=== PATIENT | male | born 1965 ===

== ENCOUNTER 2017-03-21 11:02 | Emergency (ER) | payer BC ==
[2017-03-21 11:35] VITALS: TEMP 99.2
[2017-03-21 12:21] VITALS: RESP 18; O2SAT 96
[2017-03-21] MEDS ORDERED: Piperacill/Tazo 4.5gm in NS 4.5 GM/100 ML BAG IVPB STA (12:49)
--- NOTE | 2017-03-21 12:58 | ED PDOC ---
Arrival/HPI - General Chief Complaint: Lower Extremity Problem/Injury Time Seen by Provider: 03/21/17 11:10 Historian: Patient, Spouse - History of Present Illness Narrative History of Present Illness (Text): 03/21/17 12:55 you were treated in the ED today for diabetes and not compliant with medications for sometime and have had left lower ankle/foot swelling/redness/ scabbing with longstanding numbness/decreased sensation in the feet but otherwise without any trauma/fall/injury/nausea/vomiting/headache/dizziness/ difficulty breathing/chest pain/abdomen pain/tingling/loss of limb function/ pain with urination. PMD: Dr. Brandon Price 03/21/17 14:03 03/21/17 14:04 Past Medical History - Provider Review Nursing Documentation Reviewed: Yes - Travel History Have you recently traveled outside [place] w/in the past 3 mons?: No - Infectious Disease Hx of Infectious Diseases: None - Endocrine/Metabolic Hx Diabetes Mellitus Type 2: Yes - Psychiatric Hx Substance Use: No - Anesthesia Hx Anesthesia: No Family/Social History Family/Social History: No Known Family HX Smoking Status: Current Some Days Smoker Hx Alcohol Use: No Hx Substance Use: No Allergies/Home Meds Allergies/Adverse Reactions: Allergies No Known Allergies Allergy (Verified 03/21/17 11:35) Review of Systems - Review of Systems Constitutional: Normal Eyes: Normal ENT: Normal Respiratory: Normal Cardiovascular: Normal Gastrointestinal: Normal Genitourinary Male: Normal Musculoskeletal: Joint Swelling Skin: Cellulitis Neurological: Normal Endocrine: Normal Hemo/Lymphatic: Normal Psychiatric: Normal Physical Exam Vital Signs Reviewed: Yes Vital Signs Temp Pulse Resp BP Pulse Ox 03/21/17 15:32 67 18 121/65 96 03/21/17 13:45 69 18 123/69 96 03/21/17 12:20 75 18 125/71 96 03/21/17 11:32 99.2 F 88 16 126/75 98 Temperature: Afebrile Blood Pressure: Hypertensive Pulse: Regular Respiratory Rate: Normal Appearance: Positive for: Well-Appearing, Non-Toxic, Comfortable Pain Distress: None Mental Status: Positive for: Alert and Oriented X 3 - Systems Exam Head: Present: Atraumatic, Normocephalic Pupils: Present: PERRL Extroacular Muscles: Present: EOMI Conjunctiva: Present: Normal Mouth: Present: Moist Mucous Membranes Pharnyx: Present: Normal Nose (External): Present: Atraumatic Nose (Internal): Present: Normal Inspection Neck: Present: Normal Range of Motion Respiratory/Chest: Present: Clear to Auscultation, Good Air Exchange Cardiovascular: Present: Regular Rate and Rhythm Abdomen: No: Tenderness, Distention, Normal Bowel Sounds, Peritoneal Signs, Rebound, Guarding, McBurney's Point Tender, Rovsing's Sign Present, Hernias, Feeding Tubes, Ostomy Tubes, Mass/Organomegaly, Scars, Other Back: Present: Normal Inspection Upper Extremity: Present: Normal Inspection Lower Extremity: Present: Tenderness, Swelling, Other (LLE lateral ankle with erythema/swelling/necrotic scabbing at ankle joint without thrill in jt, but mild discomfort wo fluctuance/crepitus. and lle posterior foot with area of boggy necrotic scabbing wo fluctuance/crepitus.) Neurological: Present: GCS=15, CN II-XII Intact, Speech Normal, Motor Func Grossly Intact Skin: Present: Warm, Dry, Other (see msk le) Psychiatric: Present: Alert, Oriented x 3, Normal Insight, Normal Concentration Medical Decision Making ED Course and Treatment: you were treated in the ED today for diabetes and not compliant with medications for sometime and have had left lower ankle/foot swelling/redness/ scabbing with longstanding numbness/decreased sensation in the feet but otherwise without any trauma/fall/injury/nausea/vomiting/headache/dizziness/ difficulty breathing/chest pain/abdomen pain/tingling/loss of limb function/ pain with urination. You were otherwise breathing easily, smiling with your spouse, good strength/sensation, clear lungs, no abdomen tenderness, LLE lateral ankle with redness/necrotic scabbing at joint, and left back foot with necrotic scabbing with good warm/sensation on touch/cap refill/pink and no other bony discomfort, no fever temp 99.2, stable heart rate 88, stable breathing rate 16, excellent oxygen level 98% room air, elevated blood pressure 126/75 which we recommend repeat in 2-3 days primary care office to determine further treatment, you have blood tests mild infection count 15.3, stable blood level hemoglobin 13/platelets 362, stable chemistry sodium 134, potassium 4, bicarbonate 26, chloride 102, bun 14, creatinine 0.7, elevated glucose 282, anion gap 11, liver AST/ALT 17/28, Liver Alklaline Phosphatase 86, Liver bilirubin 0.3, heart blood test normal less than 0.01, stable lactic acid 1.8, esr mildly elevated 54, radiology left foot/ankle 5th metarsal base subacute fracture without sign of osteomylitis, ECG normal sinus rhythm, antibiotics zosyn done in the ED with improvement, counselled to be compliant with medications, wear special left shoe and use can till first clinic visit and thus discharged home with with left foot/ankle skin infection. 1. Recommend bactrim as directed for infection control. 2. Recommend metformin as directed for blood sugar control as your not on medications at this time. recommend check your blood sugar regularly. 3. Recommend follow-up primary care 1-2 days to review symptom, review diabetes medications, wound check, referral to podiatry clinic. 4. If any worsening pain, fever, chills, nausea, vomiting, difficulty breathing, numbness, loss of limb function, pain with urination or any medical condition then return to the ED. 03/21/17 13:00 03/21/17 13:58 left ankle xray - subacute left 5th metatarsal fracture. no signs of osteomylitis. 03/21/17 14:01 left foot xray subacute appearing 5th metatarsal fracture base with cystic changes. no further placement or angulation. no periosteal reaction typical of osteomylitis. no gas formation. 03/21/17 15:35 03/21/17 16:14 03/21/17 16:16 03/21/17 16:21 - Lab Interpretations Lab Results: 03/21/17 13:20 03/21/17 13:20 Lab Results 03/21/17 13:20: Troponin I < 0.01 03/21/17 13:20: Sodium 134, Chloride 102, Potassium 4.0, Carbon Dioxide 26, Anion Gap 11, BUN 14, Creatinine 0.7 L, Est GFR ( Amer) > 60, Est GFR ( Non-Af Amer) > 60, Random Glucose 282 H, Calcium 9.0, Total Bilirubin 0.3, AST 17, ALT 28, Alkaline Phosphatase 86, Total Protein 7.0, Albumin 3.5, Globulin 3.6, Albumin/Globulin Ratio 1.0 L 03/21/17 13:20: pO2 62 H, VBG pH 7.37, VBG pCO2 47.0, VBG HCO3 27.2, VBG Total CO2 28.6 H, VBG O2 Sat (Calc) 94.3 H, VBG Base Excess 1.3, VBG Potassium 4.1, Sodium 134.0, Chloride 102.0, Glucose 306 H, Lactate 1.8, FiO2 21.0, Venous Blood Potassium 4.1 03/21/17 13:20: PT 12.0, INR 1.10 H, APTT 32.6 03/21/17 13:20: WBC 15.3 H, RBC 4.67, Hgb 13.2 L, Hct 39.1 L, MCV 83.7, MCH 28.3 , MCHC 33.8, RDW 12.2, Plt Count 362, MPV 9.3, Gran % 70.9 H, Lymph % (Auto) 19.2 L, [place] % (Auto) 8.5 H, Eos % (Auto) 1.0 L, Baso % (Auto) 0.4, Gran # 10.82 H, Lymph # 2.9, [place]bot # 1.3 H, Eos # 0.2, Baso # 0.06, ESR 54 H I have reviewed the lab results: Yes - RAD Interpretation Radiology Orders: 03/21/17 12:51 ANKLE LEFT 3 VIEWS ROUTINE [RAD] Stat 03/21/17 12:52 FOOT LEFT 3 VIEWS ROUTINE [RAD] Stat Hourly Manager: Radiologist - EKG Interpretation Interpreted by ED Physician: Yes (NSR, flipped t waves i, avr, avl, v5, v6, flattened ii, ) Type: 12 lead EKG - Medication Orders Current Medication Orders: Discontinued Medications Piperacillin Sod/Tazobactam Sod (Zosyn 4.5 Gm In Ns 100ml) 4.5 gm in 100 mls @ 200 mls/hr IVPB STAT STA PRN Reason: Protocol Stop: 03/21/17 13:18 Last Admin: 03/21/17 13:41 Dose: 200 mls/hr eMAR Start Stop Document 03/21/17 13:41 ANKUSH (Rec: 03/21/17 13:47 ANKUSH [id number]) Intravenous Solution Start Date 03/21/17 Start Time 13:41 End Date 03/21/17 End time 14:11 Total Infusion Time 30 Disposition/Present on Arrival - Present on Arrival Any Indicators Present on Arrival: No History of DVT/PE: No History of Uncontrolled Diabetes: No Urinary Catheter: No History of Decub. Ulcer: No History Surgical Site Infection Following: None - Disposition Have Diagnosis and Disposition been Completed?: Yes Diagnosis: Cellulitis, Hyperglycemia Disposition: HOME/ ROUTINE Disposition Time: 16:21 Patient Plan: Discharge Patient Problems: Current Active Problems Problem Status Onset Cellulitis Acute Hyperglycemia Acute Condition: IMPROVED Discharge Instructions (ExitCare): Cellulitis (ED) Additional Instructions: you were treated in the ED today for diabetes and not compliant with medications for sometime and have had left lower ankle/foot swelling/redness/ scabbing with longstanding numbness/decreased sensation in the feet but otherwise without any trauma/fall/injury/nausea/vomiting/headache/dizziness/ difficulty breathing/chest pain/abdomen pain/tingling/loss of limb function/ pain with urination. You were otherwise breathing easily, smiling with your spouse, good strength/sensation, clear lungs, no abdomen tenderness, LLE lateral ankle with redness/necrotic scabbing at joint, and left back foot with necrotic scabbing with good warm/sensation on touch/cap refill/pink and no other bony discomfort, no fever temp 99.2, stable heart rate 88, stable breathing rate 16, excellent oxygen level 98% room air, elevated blood pressure 126/75 which we recommend repeat in 2-3 days primary care office to determine further treatment, you have blood tests mild infection count 15.3, stable blood level hemoglobin 13/platelets 362, stable chemistry sodium 134, potassium 4, bicarbonate 26, chloride 102, bun 14, creatinine 0.7, elevated glucose 282, anion gap 11, liver AST/ALT 17/28, Liver Alklaline Phosphatase 86, Liver bilirubin 0.3, heart blood test normal less than 0.01, stable lactic acid 1.8, esr mildly elevated 54, radiology left foot/ankle 5th metarsal base subacute fracture without sign of osteomylitis, ECG normal sinus rhythm, antibiotics zosyn done in the ED with improvement, counselled to be compliant with medications, wear special left shoe and use can till first clinic visit and thus discharged home with with left foot/ankle skin infection. 1. Recommend bactrim as directed for infection control. 2. Recommend metformin as directed for blood sugar control as your not on medications at this time. recommend check your blood sugar regularly. 3. Recommend follow-up primary care 1-2 days to review symptom, review diabetes medications, wound check, referral to podiatry clinic. 4. If any worsening pain, fever, chills, nausea, vomiting, difficulty breathing, numbness, loss of limb function, pain with urination or any medical condition then return to the ED. Prescriptions: MetFORMIN [glucoPHAGE] 500 mg PO Q12 10 Days #20 tab Sulfamethoxazole/Trimethoprim [Bactrim Ds Tablet] 1 each PO Q12 10 Days #20 tablet Referrals: Brandon Price III, MD [Primary Care Provider] - Follow up with primary Forms: [employer] (Uzbek)
--- NOTE | 2017-03-21 13:30 | RAD ---
PROCEDURE: Left Foot Radiographs. HISTORY: 52yoM, DM, w LLE necrotic scab. eval osteomylitis COMPARISON: None. FINDINGS: BONES: A subacute appearing 5th metatarsal base fracture with surrounding cystic changes suggested. Fractured ends at least 1 mm cystic changes surrounding fracture site noted. No further DIS placement or angulation deformity noted. No intra-articular extension. The site of the "Necrotic scab" is not specified or appreciated. No periosteal reaction typical of osteomyelitis noted. Correlation with the scab site suggested there is some equivocal soft tissue changes near the lateral hindfoot heel-far removed from the 5th metatarsal base. JOINTS: First metatarsal-phalangeal joint minimal arthrosis SOFT TISSUES: No gas-forming cellulitis. Possible superficial all ulcer lateral hindfoot heel level OTHER FINDINGS: Dense nail-great toe IMPRESSION: Subacute appearing fracture 5th metatarsal base. No periosteal reaction at typical of osteomyelitis appreciated. Necrotic scab site unclear. Superficial possible skin ulceration lateral hindfoot calcaneal level
--- NOTE | 2017-03-21 13:36 | RAD ---
PROCEDURE: Left Ankle Radiographs. HISTORY: 52yoM, DM, w LLE necrotic scab. eval osteomylitis COMPARISON: None FINDINGS: BONES: Subacute appearing fracture proximal 5th metatarsal base. No periosteal reaction typical of osteomyelitis seen JOINTS: First metatarsal-phalangeal joint osteoarthritis. Ankle mortise maintained. Talar dome intact SOFT TISSUES: Possible lateral hindfoot cellulitis -a superficial skin ulceration correlate clinically OTHER FINDINGS: None. IMPRESSION: No periosteal reaction typical of osteomyelitis seen. Lateral hindfoot soft tissue changes - correlate clinically with skin ulceration site Subacute appearing fracture 5th metatarsal base. Surrounding the fracture cystic changes noted.
[2017-03-21 13:56] LABS: BASO # 0.06 K/mm3 (0.0-2.0); BASO % 0.4 % (0.0-3.0); EOS # 0.2 (0.0-0.7); GRAN # 10.82 (1.4-6.5); GRAN % 70.9 % (50.0-68.0); HEMATOCRIT 39.1 % (42.0-52.0); LYMPH # 2.9 (1.2-3.4); LYMPH % 19.2 % (22.0-35.0); MEAN CELL VOLUME 83.7 fl (80.0-105.0); MEAN CORPUSCULAR HEMOGLOBIN 28.3 pg (25.0-35.0); MEAN CORPUSCULAR HGB CONC 33.8 g/dl (31.0-37.0); MEAN PLATELET VOLUME 9.3 fl (7.0-11.0); MONO # 1.3 (0.1-0.6); MONO % 8.5 % (1.0-6.0); RED CELL DISTRIBUTION WIDTH 12.2 % (11.5-14.5); VENOUS BLOOD GAS BASE EXCESS 1.3 mmol/L (0.0-2.0); VENOUS BLOOD PH 7.37 (7.32-7.43); WHITE BLOOD COUNT 15.3 10^3/ul (4.5-11.0)
[2017-03-21 14:07] LABS: INR 1.1 (0.93-1.08); PARTIAL THROMBOPLASTIN TIME 32.6 Seconds (25.1-36.5)
[2017-03-21 14:23] LABS: ALKALINE PHOSPHATASE 86 U/L (38-126); ALT/SGPT 28 U/L (7-56); AST/SGOT 17 U/L (17-59); BILIRUBIN,TOTAL 0.3 mg/dL (0.2-1.3); BLOOD UREA NITROGEN 14 mg/dL (7-21); CARBON DIOXIDE 26 mmol/L (21-33); CHLORIDE 102 mmol/L (98-107); GFR AFRICAN-AMERICAN > 60; GLUCOSE,RANDOM 282 mg/dL (70-110); SODIUM 134 mmol/L (132-148)
[2017-03-21 15:32] VITALS: BP 121/65; PULSE 67
[2017-03-21 16:52] LABS: URINE BILIRUBIN NEGATIVE (NEGATIVE); URINE BLOOD NEGATIVE (NEGATIVE); URINE GLUCOSE (UA) >=1000 mg/dL (NEGATIVE); URINE KETONE NEGATIVE (NEGATIVE); URINE LEUKOCYTE ESTERASE NEGATIVE Leu/uL (NEGATIVE); URINE PROTEIN TRACE mg/dL (<30 mg/dL); URINE UROBILINOGEN 0.2 E.U./dL (<1 E.U./dL)
[2017-03-21 16:58] LABS: URINE APPEARANCE CLEAR (CLEAR); URINE COLOR YELLOW (YELLOW)
[2017-03-21 16:59] LABS: URINE BACTERIA FEW (NEG); URINE RBC NEGATIVE /hpf (0-2)
--- NOTE | 2017-03-22 10:05 | CARD ---
APPROVED REPORT EKG Measurement Heart [id number] <Conclusion> Normal sinus rhythm LVH by voltage STTW changes c/w ischemia ST elevations V 3 - 6. Possible lateral wall NE, age unknown
== END 2017-03-21 16:41 | disposition home or self-care (01) ==
LOC: ED 11:02
DX: E11.65 Type 2 diabetes mellitus with hyperglycemia (principal); L03.116 Cellulitis of left lower limb; Z91.19 Patient's noncompliance with other medical treatment and regimen
CPT/HCPCS: 73610; 73630; 80053; 81001; 82803; 84484; 85025; 85610; 85651; 85730; 87040; 93005; 96365; 99284; J2543